=== PATIENT | female | born 1990 | race Caucasian/White ===

== ENCOUNTER 2023-02-07 17:44 | Emergency (ER) | payer MEDICAID ==
[~2023-02-07] VITALS: Ht 165.1 cm; Wt 81.0 kg
[2023-02-07 17:53] VITALS: O2SAT 100
[2023-02-07] MEDS ORDERED: ACETAMINOPHEN 325MG TABLET PO ONE (21:45)
[2023-02-07 23:31] VITALS: BP 136/87; PULSE 77; RESP 20; TEMP 98.2
== END 2023-02-07 23:33 | disposition home or self-care (01) ==
LOC: ER 18:20
DX: S93.402A Sprain of unspecified ligament of left ankle, initial encounter (principal); X58.XXXA Exposure to other specified factors, initial encounter; Y93.89 Activity, other specified; Y92.89 Other specified places as the place of occurrence of the external cause; Y99.8 Other external cause status
CPT/HCPCS: 73610; 81025; 99283